=== PATIENT | male | born 1960 | race African-American/Black ===

== ENCOUNTER 2022-04-26 13:59 | Emergency (ER) | payer OTHER ==
--- NOTE | 2022-04-26 16:11 | US ---
EXAMINATION TYPE: US venous doppler duplex LE RT DATE OF EXAM: 04/26/2022 4:02 PM COMPARISON: NONE CLINICAL HISTORY: right thigh swelling, recent right thigh graft. No thigh graft, patient had right G SV stripped for cardiac bypass last month, swelling around incision site, no fever SIDE PERFORMED: Right TECHNIQUE: The lower extremity deep venous system is examined utilizing real time linear array sonog josiah with graded compression, doppler sonography and color-flow sonography. VESSELS IMAGED: Common Femoral Vein Deep Femoral Vein Greater Saphenous Vein * Femoral Vein Popliteal Vein Small Saphenous Vein * Proximal Calf Veins (* superficial vessels) Grayscale, color doppler, spectral doppler imaging performed of the deep veins of the lower extremiti es. There is normal flow, compressibility, vascular waveforms. Right Leg: Negative for DVT post surgical 5.7cm complex fluid collection seen at medial right thig h at incision site of GSV stripping No color flow demonstrated within the fluid collection or surrounding hyperemia. IMPRESSION: 1. No evidence for deep venous thrombosis in the right lower extremity. 2. Complex 5.7 cm fluid collection seen in the medial right thigh at incision site. Favored to repre sent a hematoma.
--- NOTE | 2022-04-26 16:22 | ED ---
Extremity Problem HPI - General Chief complaint: Extremity Problem,Nontraumatic Stated complaint: leg swelling Time Seen by Provider: 04/26/22 14:54 Source: patient - History of Present Illness Initial comments: Patient is a 61-year-old male who presents for evaluation of right thigh swelling. Patient was at [facility] today being evaluated prior to admission when he was found to have swelling of his right inner thigh. Patient had a CABG 10 days ago at [facility] and a graft was removed from this region. Despite triage note patient has endorsed any thigh pain although he does report mild pain with palpation. He denies chest pain and shortness of breath. Denies fever and chills. Patient does have history of DVT which he states was in the right lower extremity over 20 years ago. Takes baby aspirin otherwise no blood thinner use. - Related Data Allergies Allergy/AdvReac Type Severity Reaction Status Date / Time No Known Allergies Allergy Verified 04/26/22 14:47 Review of Systems ROS Statement: Those systems with pertinent positive or pertinent negative responses have been documented in the HPI. ROS Other: All systems not noted in ROS Statement are negative. Past Medical History Past Medical History: Coronary Artery Disease (CAD) History of Any Multi-Drug Resistant Organisms: None Reported Past Psychological History: No Psychological Hx Reported Smoking Status: Former smoker Past Alcohol Use History: None Reported Past Drug Use History: None Reported General Exam General appearance: alert, in no apparent distress Head exam: Present: atraumatic, normocephalic, normal inspection Eye exam: Present: normal appearance, PERRL, EOMI. Absent: scleral icterus, conjunctival injection, periorbital swelling Respiratory exam: Present: normal lung sounds bilaterally. Absent: respiratory distress, wheezes, rales, rhonchi, stridor Cardiovascular Exam: Present: regular rate, normal rhythm, normal heart sounds. Absent: systolic murmur, diastolic murmur, rubs, gallop, clicks Extremities exam: Present: normal capillary refill, other (Region of flunctuance in right distal medial thigh approximately 5 cm long. No pulsing, blanching, warmth or erythema. Minimal pain with palpatiton. Cap refill < 2 sec). Absent: calf tenderness Course Vital Signs 04/26/22 04/26/22 14:43 17:34 Temperature 98.7 F 98.2 F Pulse Rate 65 74 Respiratory 16 18 Rate Blood Pressure 151/87 142/71 O2 Sat by Pulse 100 98 Oximetry Medical Decision Making - Medical Decision Making Was pt. sent in by a medical professional or institution (, KYLIE, AEROSOL SUPERVISOR, urgent care, hospital, or long term...) When possible be specific @ -No Did you speak to anyone other than the patient for history (EMS, parent, family, police, friend...)? What history was obtained from this source @ -No Did you review nursing and triage notes (agree or disagree)? Why? @ -[I reviewed and disagree. Patient has not felt pain. Were old charts reviewed (outside hosp., previous admission, EMS record, old EKG, old radiological studies, urgent care reports/EKG's, long term records)? Report findings @ -No old charts were reviewed Differential Diagnosis (chest pain, altered mental status, abdominal pain women, abdominal pain men, vaginal bleeding, weakness, fever, dyspnea, syncope, headache, dizziness, GI bleed, back pain, seizure, CVA, palpatations, mental health)? @ -DVT, superficial thrombophlebitis, hematoma, cellulitis EKG interpreted by me (3pts min.). @ -As above X-rays interpreted by me (1pt min.). @ -None done CT interpreted by me (1pt min.). @ -None done U/S interpreted by me (1pt. min.). @ -US RLE with doppler shows a 5.7 centimeter fluid collection seen in the medial right thigh incision site favored to represent hematoma What testing was considered but not performed or refused? (CT, X-rays, U/S, labs)? Why? @ -Considered laboratory testing however patient has minimal pain with palpation. No fever, nausea, vomiting What meds were considered but not given or refused? Why? @ -considerd pain medication however patient does not have pain. Did you discuss the management of the patient with other professionals (professionals i.e. KYLIE Edouard, AEROSOL SUPERVISOR, lab, RT, psych nurse, social media executive, well service floorperson, teacher, space operations officer, registered nurse hh case manager)? Give summary @ -No Was smoking cessation discussed for >3mins.? @ -No Was critical care preformed (if so, how long)? @ -No Were there social determinants of health that impacted care today? How? (Homelessness, low income, unemployed, alcoholism, drug addiction, transportation, low edu. Level, literacy, decrease access to med. care, detention, rehab)? @ -No Was there de-escalation of care discussed even if they declined (Discuss DNR or withdrawal of care, Hospice)? DNR status @ -No What co-morbidities impacted this encounter? (DM, HTN, Smoking, COPD, CAD, Cancer, CVA, ARF, Chemo, Hep., AIDS, mental health diagnosis, sleep apnea, morbid obesity)? @ -None Was patient admitted / discharged? Hospital course, mention meds given and route, prescriptions, significant lab abnormalities, going to OR and other pertinent info. @ -This is a 61-year-old presenting with right thigh swelling at incision site of CABG graft. Suspected hematoma on ultrasound. Symptoms are consistent with ultrasound findings. The hematoma was poonam wrapped and we discussed importance of compression and warm compress. Patient to watch hematoma closely, return if no improvement or other new or concerning symptoms Undiagnosed new problem with uncertain prognosis? @ -No Drug Therapy requiring intensive monitoring for toxicity (Heparin, Nitro, Insulin, Cardizem)? @ -No Were any procedures done? @ -No Diagnosis/symptom? @ -Hematoma Acute, or Chronic, or Acute on Chronic? @ -acute Uncomplicated (without systemic symptoms) or Complicated (systemic symptoms)? @ -uncomplicated Side effects of treatment? @ -No Exacerbation, Progression, or Severe Exacerbation? @ -No Poses a threat to life or bodily function? How? (Chest pain, USA, NH, pneumonia, PE, COPD, DKA, ARF, appy, cholecystitis, CVA, Diverticulitis, Homicidal, Suicidal, threat to staff... and all critical care pts) @ -No Dr. Brennan is my attending. Disposition Clinical Impression: Postoperative complication, Hematoma Disposition: HOME SELF-CARE Condition: Good Instructions (If sedation given, give patient instructions): Hematoma (ED) Additional Instructions: Keep poonam bandage on to reduce swelling and pain. Applying warm compress will also help. Follow up with PCP in 1-2 days. Return to the ER if you experience new, concerning, or worsening symptoms. Is patient prescribed a controlled substance at d/c from ED?: No Referrals: None,Stated [Primary Care Provider] - 1-2 days Time of Disposition: 16:22
[2022-04-26 17:35] VITALS: BP 142/71; PULSE 74; RESP 18; TEMP 98.2
== END 2022-04-26 17:34 | disposition home or self-care (01) ==
LOC: EC 13:59
DX: M96.841 Postprocedural hematoma of a musculoskeletal structure following other procedure (principal); I25.10 Atherosclerotic heart disease of native coronary artery without angina pectoris; Z87.891 Personal history of nicotine dependence
CPT/HCPCS: 99283

== ENCOUNTER 2022-04-27 12:22 | Emergency (ER) | payer OTHER ==
[2022-04-27] MEDS ORDERED: KETOROLAC 15 MG/ML 1 ML VIAL IVP STA (13:54)
[2022-04-27] MEDS ORDERED: SODIUM CHLORIDE 0.9% 500 ML 500 ML IV STA (13:54)
--- NOTE | 2022-04-27 13:58 | ED ---
General Adult HPI - General Chief complaint: Recheck/Abnormal Lab/Rx Stated complaint: chest pain Time Seen by Provider: 04/27/22 13:30 Source: patient, RN notes reviewed, old records reviewed Mode of arrival: ambulatory Limitations: no limitations - History of Present Illness Initial comments: This is a 61-year-old male who presents emergency Department from [facility]. Patient states she's here for alcohol and cocaine abuse. Patient comes in today complaining of a cough and coughing up some sputum. Patient states this started at about 1:00 in the morning. Patient states he was in the emergency department yesterday because of right arm pain. Patient states he has been having right arm pain and weakness since he had surgery he states the pain seems to have been worse since 1:00 in the morning. Patient states he did some moving of objects yesterday at the facility and that seems to aggravate it. Patient denies any fevers chills patient denies any chest pain. She has no indicated that complaint of chest pain: I asked him he stated it was same chest pains been experiencing since he had open-heart surgery 10 days ago and just sore. Patient denies any new chest pain patient denies any abdominal pain patient denies nausea vomiting. Patient denies any lightheadedness or dizziness. - Related Data Home Medications Medication Instructions Recorded Confirmed Aspirin EC [Ecotrin Low Dose] 81 mg PO DAILY 04/27/22 04/27/22 Atorvastatin [Lipitor] 80 mg PO HS@2100 04/27/22 04/27/22 Folic Acid 1 mg PO DAILY 04/27/22 04/27/22 Magnesium Oxide [Magox 400] 400 mg PO BID 04/27/22 04/27/22 Metoprolol Tartrate [Lopressor] 12.5 mg PO BID 04/27/22 04/27/22 Multivitamins, Thera [Multivitamin 1 tab PO DAILY 04/27/22 04/27/22 (formulary)] Thiamine [Vitamin B-1] 100 mg PO DAILY 04/27/22 04/27/22 traZODone HCL [Desyrel] 50 - 150 mg PO HS PRN 04/27/22 04/27/22 Allergies Allergy/AdvReac Type Severity Reaction Status Date / Time No Known Allergies Allergy Verified 04/27/22 15:51 Review of Systems ROS Statement: Those systems with pertinent positive or pertinent negative responses have been documented in the HPI. ROS Other: All systems not noted in ROS Statement are negative. Past Medical History Past Medical History: Coronary Artery Disease (CAD) History of Any Multi-Drug Resistant Organisms: None Reported Past Surgical History: No Surgical Hx Reported Past Psychological History: No Psychological Hx Reported Smoking Status: Former smoker Past Alcohol Use History: None Reported Past Drug Use History: None Reported General Exam - General Exam Comments Initial Comments: GENERAL: Patient is well-developed and well-nourished. Patient is nontoxic and well- hydrated and is in mild distress. ENT: Neck is soft and supple. No significant lymphadenopathy is noted. Oropharynx is clear. Moist mucous membranes. Neck has full range of motion without eliciting any pain. EYES: The sclera were anicteric and conjunctiva were pink and moist. Extraocular movements were intact and pupils were equal round and reactive to light. Eyelids were unremarkable. PULMONARY: Unlabored respirations. Good breath sounds bilaterally. No audible rales rhonchi or wheezing was noted. CARDIOVASCULAR: There is a regular rate and rhythm without any murmurs gallops or rubs. ABDOMEN: Soft and nontender with normal bowel sounds. SKIN: Skin is clear with no lesions or rashes and otherwise unremarkable. NEUROLOGIC: Patient is alert and oriented x3. Cranial nerves II through XII are grossly intact. Right casing runner is 3 out of 5 compared to the left side. Patient states this is been ongoing since he had surgery. Normal speech, volume and content. Symmetrical smile. Cerebellar exam grossly intact. MUSCULOSKELETAL: Normal extremities with adequate strength and full range of motion. Patient's right shoulder pain is reproducible with movement of the right shoulder. LYMPHATICS: No significant lymphadenopathy is noted PSYCHIATRIC: Normal psychiatric evaluation. Limitations: no limitations Course Vital Signs 04/27/22 04/27/22 04/27/22 12:26 14:18 15:43 Temperature 97.8 F 98.2 F Pulse Rate 69 52 L 65 Respiratory 16 14 18 Rate Blood Pressure 155/79 149/89 162/97 O2 Sat by Pulse 100 100 99 Oximetry Medical Decision Making - Medical Decision Making EKG was interpreted by myself. EKG shows a sinus rhythm at 61 bpm DE interval is 173 QRSs 106 QT interval is 452 QTC is 454. Patient's EKG shows T-wave inversions V1 through V6 as well as 1 and aVL. There is no old EKG to compare to. Chest x-ray shows no acute abnormality. I went back into the room to reevaluate the patient he stated he had no symptoms at this time is arm felt considerably better and he wanted to be discharged. - Lab Data Result diagrams: 04/27/22 14:24 04/27/22 14:24 Lab Results 04/27/22 04/27/22 04/27/22 Range/Units 14:24 14:24 14:24 WBC 6.1 (3.8-10.6) k/uL RBC 3.64 L (4.30-5.90) m/uL Hgb 10.4 L (13.0-17.5) gm/dL Hct 32.1 L (39.0-53.0) % MCV 88.2 (80.0-100.0) fL MCH 28.6 (25.0-35.0) pg MCHC 32.5 (31.0-37.0) g/dL RDW 13.4 (11.5-15.5) % Plt Count 441 (150-450) k/uL MPV 7.1 Neutrophils % 60 % Lymphocytes % 28 % Monocytes % 8 % Eosinophils % 1 % Basophils % 0 % Neutrophils # 3.7 (1.3-7.7) k/uL Lymphocytes # 1.7 (1.0-4.8) k/uL Monocytes # 0.5 (0-1.0) k/uL Eosinophils # 0.1 (0-0.7) k/uL Basophils # 0.0 (0-0.2) k/uL PT 10.5 (9.0-12.0) sec INR 1.0 (<1.2) APTT 26.5 (22.0-30.0) sec Sodium 132 L (137-145) mmol/L Potassium 4.8 (3.5-5.1) mmol/L Chloride 101 (98-107) mmol/L Carbon Dioxide 23 (22-30) mmol/L Anion Gap 8 mmol/L BUN 10 (9-20) mg/dL Creatinine 0.77 (0.66-1.25) mg/dL Est GFR (CKD-EPI)AfAm >90 (>60 ml/min/1.73 sqM) Est GFR (CKD-EPI)NonAf >90 (>60 ml/min/1.73 sqM) Glucose 96 (74-99) mg/dL Calcium 9.1 (8.4-10.2) mg/dL Magnesium 1.5 L (1.6-2.3) mg/dL Total Bilirubin 0.5 (0.2-1.3) mg/dL AST 36 (17-59) U/L ALT 23 (4-49) U/L Alkaline Phosphatase 56 (38-126) U/L Troponin I (0.000-0.034) ng/mL Total Protein 6.9 (6.3-8.2) g/dL Albumin 3.8 (3.5-5.0) g/dL Amylase 81 (30-110) U/L Lipase 138 (23-300) U/L 04/27/22 Range/Units 14:24 WBC (3.8-10.6) k/uL RBC (4.30-5.90) m/uL Hgb (13.0-17.5) gm/dL Hct (39.0-53.0) % MCV (80.0-100.0) fL MCH (25.0-35.0) pg MCHC (31.0-37.0) g/dL RDW (11.5-15.5) % Plt Count (150-450) k/uL MPV Neutrophils % % Lymphocytes % % Monocytes % % Eosinophils % % Basophils % % Neutrophils # (1.3-7.7) k/uL Lymphocytes # (1.0-4.8) k/uL Monocytes # (0-1.0) k/uL Eosinophils # (0-0.7) k/uL Basophils # (0-0.2) k/uL PT (9.0-12.0) sec INR (<1.2) APTT (22.0-30.0) sec Sodium (137-145) mmol/L Potassium (3.5-5.1) mmol/L Chloride (98-107) mmol/L Carbon Dioxide (22-30) mmol/L Anion Gap mmol/L BUN (9-20) mg/dL Creatinine (0.66-1.25) mg/dL Est GFR (CKD-EPI)AfAm (>60 ml/min/1.73 sqM) Est GFR (CKD-EPI)NonAf (>60 ml/min/1.73 sqM) Glucose (74-99) mg/dL Calcium (8.4-10.2) mg/dL Magnesium (1.6-2.3) mg/dL Total Bilirubin (0.2-1.3) mg/dL AST (17-59) U/L ALT (4-49) U/L Alkaline Phosphatase (38-126) U/L Troponin I 0.024 (0.000-0.034) ng/mL Total Protein (6.3-8.2) g/dL Albumin (3.5-5.0) g/dL Amylase (30-110) U/L Lipase (23-300) U/L Disposition Clinical Impression: Chronic right shoulder pain Disposition: HOME SELF-CARE Instructions (If sedation given, give patient instructions): Shoulder Pain (ED) Is patient prescribed a controlled substance at d/c from ED?: No Referrals: None,Stated [Primary Care Provider] - 1-2 days Time of Disposition: 17:07
[2022-04-27 14:36] VITALS: TEMP 98.2
--- NOTE | 2022-04-27 14:39 | XR ---
EXAMINATION TYPE: XR chest 2V DATE OF EXAM: 04/27/2022 2:33 PM COMPARISON: None TECHNIQUE: XR chest 2V Frontal and lateral views of the chest. CLINICAL INDICATION:Male, 61 years old with history of Chest Pain; FINDINGS: Lungs/Pleura: There is no evidence of pleural effusion, focal consolidation, or pneumothorax. Pulmonary vascularity: Unremarkable. Heart/mediastinum: Cardiomediastinal silhouette is prominent in size. Musculoskeletal: No acute osseous pathology. Midline sternotomy wires are noted. IMPRESSION: No acute cardiopulmonary disease/process.
[2022-04-27 15:04] LABS: Basophils % (A) 0 %; Eosinophils # (A) 0.1 k/uL (0-0.7); Eosinophils % (A) 1 %; HCT 32.1 % (39.0-53.0); HGB 10.4 gm/dL (13.0-17.5); Lymphocytes # (A) 1.7 k/uL (1.0-4.8); Lymphocytes % (A) 28 %; MCH 28.6 pg (25.0-35.0); MCHC 32.5 g/dL (31.0-37.0); MCV 88.2 fL (80.0-100.0); Mean Platelet Volume 7.1; Monocytes # (A) 0.5 k/uL (0-1.0); Monocytes % (A) 8 %; Neutrophils # (A) 3.7 k/uL (1.3-7.7); Neutrophils % (A) 60 %; Platelet Count 441 k/uL (150-450); RBC 3.64 m/uL (4.30-5.90); RDW 13.4 % (11.5-15.5); WBC 6.1 k/uL (3.8-10.6)
[2022-04-27 15:13] LABS: Partial Thromboplastin Time 26.5 sec (22.0-30.0); Prothrombin Time 10.5 sec (9.0-12.0)
[2022-04-27 15:20] LABS: ALT 23 U/L (4-49); AST 36 U/L (17-59); African American GFR (CKD) >90 (>60 ml/min/1.73 sqM); Albumin 3.8 g/dL (3.5-5.0); Alkaline Phosphatase 56 U/L (38-126); Amylase 81 U/L (30-110); Anion Gap 8 mmol/L; Blood Urea Nitrogen 10 mg/dL (9-20); Calcium 9.1 mg/dL (8.4-10.2); Carbon Dioxide 23 mmol/L (22-30); Chloride 101 mmol/L (98-107); Glucose 96 mg/dL (74-99); Lipase 138 U/L (23-300); Magnesium 1.5 mg/dL (1.6-2.3); Non-African American GFR(CKD) >90 (>60 ml/min/1.73 sqM); Potassium 4.8 mmol/L (3.5-5.1); Sodium 132 mmol/L (137-145); Total Bilirubin 0.5 mg/dL (0.2-1.3); Total Protein 6.9 g/dL (6.3-8.2)
[2022-04-27] MEDS ORDERED: MAGNESIUM SULFATE-D5W PMX 1 GM in DEXTROSE/WATER 1 100ML.BAG IVPB ONE (15:30)
[2022-04-27 15:44] VITALS: RESP 18
[2022-04-27 17:43] VITALS: BP 121/97; PULSE 70
== END 2022-04-27 17:46 | disposition home or self-care (01) ==
LOC: EC 12:22
DX: G89.29 Other chronic pain (principal); M25.511 Pain in right shoulder; I25.10 Atherosclerotic heart disease of native coronary artery without angina pectoris; Z87.891 Personal history of nicotine dependence; Z79.82 Long term (current) use of aspirin; Z79.899 Other long term (current) drug therapy
CPT/HCPCS: 36415; 93005; 80053; 82150; 83690; 83735; 84484; 85025; 85610; 85730; 71046; 99285; 96365; 96366; 96375; 96361; J3475; J1885